=== PATIENT | female | born 1955 | race Caucasian/White ===

== ENCOUNTER 2018-01-13 09:57 | Outpatient (CLI) | payer OTHER | END 2018-01-13 20:28 | disposition home or self-care (01) | LOC: SRD 09:57 | PROVIDERS: ATTEND Family Medicine | DX: I70.0 Atherosclerosis of aorta (principal); R92.8 Other abnormal and inconclusive findings on diagnostic imaging of breast; I10 Essential (primary) hypertension | CPT/HCPCS: 71046-TC ==

== ENCOUNTER 2018-02-08 09:53 | Outpatient (CLI) | payer OTHER | END 2018-02-08 20:35 | disposition home or self-care (01) | LOC: SMA 09:53 | PROVIDERS: ATTEND Family Medicine | DX: R92.8 Other abnormal and inconclusive findings on diagnostic imaging of breast (principal); I10 Essential (primary) hypertension; I70.0 Atherosclerosis of aorta | CPT/HCPCS: 77066 ==